=== PATIENT | female | born 1975 | race Two or more races ===

== ENCOUNTER 2016-09-24 14:40 | Emergency (ER) | payer OTHER ==
[2016-09-24 14:45] VITALS: BP 114/60; PULSE 88; TEMP 98.3; BMI 32.8
--- NOTE | 2016-09-24 16:11 | PDOC ---
History of Present Illness <Alpa Fernandez - Last Filed: 09/24/16 19:44> - General History Source: Patient Exam Limitations: No Limitations - History of Present Illness Travel History: No Initial Comments: 09/24/16 16:08 41 yr female with c/o left lower abd pain for one week comes and goes stabbing, shooting type pain. Pt denies nvd, LMP 09/01/16 sexually active no control. Pt denies urinary or bowel dysfunction. Pt has history of csection. Timing/Duration: reports: intermittent Quality: reports: sharpness, stabbing Abdominal Pain Onset Location: reports: LLQ Pain Radiation: reports: no radiation <Vesta Rajan - Last Filed: 09/27/16 12:49> - General Chief Complaint: Pain, Acute Stated Complaint: PAIN Time Seen by Provider: 09/24/16 15:57 Past History <Alpa Fernandez - Last Filed: 09/24/16 19:44> - Past Medical History Anemia: Yes Asthma: No Cancer: No Cardiac Disorders: No Diabetes: No HTN: No Seizures: No Thyroid Disease: No - Surgical History Cholecystectomy: Yes GI Surgery: Yes (sleeve) - Psycho/Social/Smoking Cessation Hx Anxiety: No Suicidal Ideation: No Smoking Status: Yes Smoking History: Never smoked Number of Cigarettes Smoked Daily: 0 Hx Alcohol Use: No Drug/Substance Use Hx: No Substance Use Type: None Hx Substance Use Treatment: No <Vesta Rajan - Last Filed: 09/27/16 12:49> - Past Medical History Allergies/Adverse Reactions: Allergies Allergy/AdvReac Type Severity Reaction Status Date / Time Penicillins Allergy Intermediate Rash Verified 09/24/16 14:45 Home Medications: Ambulatory Orders Naproxen [Naprosyn -] 500 mg PO BID #14 tablet 06/21/16 Naproxen [Naprosyn -] 500 mg PO BID PRN #14 tablet 09/24/16 Nitrofurantoin Monohyd/M-Cryst [Macrobid -] 100 mg PO BID #14 capsule 09/24/16 Abd/GI Specific PMHX - Complaint Specific PMHX Colitis: No Diverticulitis: No Gall Bladder Disease: No GERD: No Hepatitis: No Irritable Bowel Synd (IBS): No Pancreatitis: No GI Ulcer Disease: No <Vesta Rajan - Last Filed: 09/27/16 12:49> Review of Systems - Review of Systems Able to Perform ROS?: Yes Is the patient limited Tajik proficient: No Constitutional: No: Symptoms Reported HEENTM: No: Symptoms Reported Respiratory: No: Symptoms reported Cardiac (ROS): No: Symptoms Reported ABD/GI: Yes: See HPI : No: Symptoms Reported Musculoskeletal: No: Symptoms Reported Integumentary: No: Symptoms Reported Neurological: No: Symptoms reported <Vesta Rajan - Last Filed: 09/27/16 12:49> *Physical Exam - Vital Signs Last Vital Signs Temp Pulse Resp BP Pulse Ox 98.3 F 88 18 114/60 99 09/24/16 14:43 09/24/16 14:43 09/24/16 14:43 09/24/16 14:43 09/24/16 14:43 <Alpa Fernandez - Last Filed: 09/24/16 19:44> - Vital Signs Last Vital Signs Temp Pulse Resp BP Pulse Ox 98.3 F 88 18 114/60 99 09/24/16 14:43 09/24/16 14:43 09/24/16 14:43 09/24/16 14:43 09/24/16 14:43 - Physical Exam General Appearance: Yes: Nourished, Appropriately Dressed HEENT: positive: EOMI, JI, Normal ENT Inspection, TMs Normal, Pharynx Normal Neck: positive: Supple Respiratory/Chest: positive: Lungs Clear, Normal Breath Sounds Cardiovascular: positive: Regular Rhythm, Regular Rate Female Pelvic Exam: positive: normal external exam, normal adnexa, discharge ( white/yellow). negative: CMT Gastrointestinal/Abdominal: positive: Normal Bowel Sounds, Tender (llq mild , no rebound or guarding ), Soft Lymphatic: negative: Adenopathy Musculoskeletal: positive: Normal Inspection Extremity: positive: Normal Inspection, Normal Range of Motion Integumentary: positive: Normal Color, Dry, Warm Neurologic: positive: Fully Oriented, Alert, Normal Mood/Affect, Normal Response , Motor Strength 5/5 <Vesta Rajan - Last Filed: 09/27/16 12:49> ED Treatment Course - ADDITIONAL ORDERS Additional order review: Laboratory Results 09/24/16 16:00 Urine Color Straw Urine Appearance Slcloudy Urine pH 6.0 Urine Protein Negative Urine Glucose (UA) Negative Urine Ketones Negative Urine Blood Negative Urine Nitrite Negative Urine Bilirubin Negative Urine Urobilinogen Negative Ur Leukocyte Esterase 3+ H Urine RBC 3 Urine WBC 43 Ur Epithelial Cells Few Urine Bacteria Rare Urine Mucus Rare Urine HCG, Qual Negative <RebeccaAlpa - Last Filed: 09/24/16 19:44> Medical Decision Making - Medical Decision Making 09/24/16 16:14 cc: LLQ pain no fever or chills neg nvd no urinary symptoms will check urine, genital culture pt refused any pain meds will r/o ovarian cyst pt is stable 09/24/16 17:07 09/24/16 18:38 pt stable in US. no pain. 09/24/16 18:50 09/24/16 18:50 09/24/16 18:58 signed out to Alpa Fernandez who will follow the case. US pending. <Vesta Rajan - Last Filed: 09/27/16 12:49> *DC/Admit/Observation/Transfer - Discharge Dispostion Admit: No <Alpa Fernandez - Last Filed: 09/24/16 19:44> <Vesta Rajan - Last Filed: 09/27/16 12:49> Diagnosis at time of Disposition: Uterine fibroid - Discharge Dispostion Disposition: HOME Condition at time of disposition: Good - Prescriptions Prescriptions: Nitrofurantoin Monohyd/M-Cryst [Macrobid -] 100 mg PO BID #14 capsule Naproxen [Naprosyn -] 500 mg PO BID PRN #14 tablet PRN Reason: Pain - Referrals Referrals: Haseeb Peterson MD [Primary Care Provider] - Deonna Acosta MD [Staff Physician] - - Patient Instructions Printed Discharge Instructions: DI for Uterine Fibroids Additional Instructions: follow with your [facility] [employer] for follow up take naprosyn as directed for pain apply a warm heating pad to lower abdomen return to ER if any worsening symptoms - Post Discharge Activity Work/School Note: Back to Work
[2016-09-24 17:08] LABS: URINE APPEARANCE SLCLOUDY; URINE BILIRUBIN NEGATIVE (NEGATIVE); URINE BLOOD NEGATIVE (NEGATIVE); URINE COLOR STRAW; URINE GLUCOSE (UA) NEGATIVE (NEGATIVE); URINE KETONE NEGATIVE (NEGATIVE); URINE NITRITE NEGATIVE (NEGATIVE); URINE PROTEIN NEGATIVE (NEGATIVE); URINE UROBILINOGEN NEGATIVE E.U./dl (0.2-1.0)
[2016-09-24 17:21] LABS: URINE LEUK ESTERASE 3+ (NEGATIVE)
[2016-09-24 17:24] LABS: URINE BACTERIA RARE /hpf (NONE SEEN); URINE MUCUS RARE; URINE RBC 3 /hpf (0-3); URINE WBC 43 /hpf (3-5)
== END 2016-09-24 19:48 | disposition home or self-care (01) ==
LOC: JER 14:40
DX: D25.9 Leiomyoma of uterus, unspecified (principal)
CPT/HCPCS: 36415; 76830-TC; 81003; 81015; 84703; 87491; 87591; 99282-25

== ENCOUNTER 2017-06-01 13:00 | Emergency (ER) | payer OTHER ==
[2017-06-01 13:05] VITALS: BP 125/74; PULSE 116; TEMP 97.5; BMI 33.7
--- NOTE | 2017-06-01 14:21 | PDOC ---
History of Present Illness - General Chief Complaint: Pain Stated Complaint: RT KNEE, WRIST PAIN Time Seen by Provider: 06/01/17 13:50 History Source: Patient Exam Limitations: No Limitations - History of Present Illness Initial Comments: 06/01/17 14:16 42 year old female with history of cholecystectomy, x 1 and abdominal sleeve, present with complaints of right knee pain and left wrist pain x 1 week. States pain in left wrist with movement of wrist and right knee is aggravated by extended standing. Reports no injuries or fall. Also states no heavy lifting. Seen prior for the wrist and diagnosed with arthritis, taking acetaminophen with no relief. Occurred: reports: other (one week) Severity: reports: mild Pain Location: reports: lower extremity, upper extremity Method of Injury: Yes: unknown Modifying Factors: improves with: pain medication Loss of Consciousness: no loss of consciousness Associated Symptoms (Fall): denies symptoms Past History - Travel Traveled outside of the country in the last 30 days: No Close contact w/someone who was outside of country & ill: No - Past Medical History Allergies/Adverse Reactions: Allergies Allergy/AdvReac Type Severity Reaction Status Date / Time Penicillins Allergy Intermediate Rash Verified 06/01/17 13:04 Home Medications: Ambulatory Orders Naproxen [Naprosyn -] 500 mg PO BID #14 tablet 06/01/17 Anemia: Yes Asthma: No Cancer: No Cardiac Disorders: No COPD: No Diabetes: No HTN: No Seizures: No Thyroid Disease: No - Surgical History Cholecystectomy: Yes GI Surgery: Yes (sleeve) - Reproductive History Therapeutic (s) & number: No - Suicide/Smoking/Psychosocial Hx Smoking Status: Yes Smoking History: Never smoked Number of Cigarettes Smoked Daily: 0 Hx Alcohol Use: No Drug/Substance Use Hx: No Substance Use Type: None Hx Substance Use Treatment: No Trauma Specific PMHX - Complaint Specific PMHX Back Injury: No Neck Injury: No Review of Systems - Review of Systems Able to Perform ROS?: No Is the patient limited Bengali proficient: No Constitutional: No: Chills, Diaphoresis, Fever, Night Sweats, Weakness HEENTM: No: Ear Discharge, Nose Pain, Throat Pain, Throat Swelling Respiratory: No: Orthopnea, Wheezing Cardiac (ROS): No: Chest Pain ABD/GI: No: Abdominal Distended, Blood Streaked Bowels, Poor Appetite Musculoskeletal: Yes: Joint Pain Neurological: No: Headache, Numbness, Paresthesia *Physical Exam - Vital Signs Last Vital Signs Temp Pulse Resp BP Pulse Ox 97.5 F L 116 H 20 125/74 99 06/01/17 13:02 06/01/17 13:02 06/01/17 13:02 06/01/17 13:02 06/01/17 13:02 - Physical Exam General Appearance: Yes: Nourished, Appropriately Dressed. No: Apparent Distress HEENT: positive: EOMI, JI. 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 Medical Decision Making - Medical Decision Making 06/01/17 14:21 42 year old female with history of cholecystectomy, abdominal sleeve and c- section x 1 present with pain in right wrist and left knee xray of right knee analgesia uric acid *DC/Admit/Observation/Transfer Diagnosis at time of Disposition: Knee pain, acute Qualifiers: Laterality: right Qualified Code(s): M25.561 - Pain in right knee - Discharge Dispostion Disposition: HOME Condition at time of disposition: Good Admit: No - Prescriptions Prescriptions: Naproxen [Naprosyn -] 500 mg PO BID #14 tablet - Referrals Referrals: Haseeb Peterson MD [Primary Care Provider] - Chauncey Berger MD [Staff Physician] - Call tomorrow - Patient Instructions Printed Discharge Instructions: DI for Acute Pain -- Adult Additional Instructions: Activity as tolerated elevate leg at rest call orthopedic for follow up appointment - Post Discharge Activity Forms/Work/School Notes: Back to Work
[2017-06-01] MEDS ORDERED: KETOROLAC TROMETHAMINE 30 MG/1 ML VIAL IM ONE (14:23)
[2017-06-01] MEDS ORDERED: KETOROLAC TROMETHAMINE 30 MG/1 ML VIAL ONE (14:25)
== END 2017-06-01 16:14 | disposition home or self-care (01) ==
LOC: JERFT 13:00
PROC: 3E0233Z Introduction of Anti-inflammatory into Muscle, Percutaneous Approach (ICD-10-PCS; principal; 2017-06-01)
DX: M25.561 Pain in right knee (principal)
CPT/HCPCS: 36415; 73562-TC-RT-FY; 84550; 99281-25

== ENCOUNTER 2018-10-29 12:14 | Emergency (ER) | payer OTHER ==
[2018-10-29 12:17] VITALS: BP 117/65; PULSE 107; TEMP 99; BMI 33.6
[2018-10-29] MEDS ORDERED: KETOROLAC TROMETHAMINE 30 MG/1 ML VIAL IVPUSH STA (12:44)
[2018-10-29 13:34] LABS: BASO % 1.2 % (0-2.0); EOS % 4.9 % (0-4.5); HEMATOCRIT 29.5 % (32.4-45.2); HEMOGLOBIN 9.4 GM/dL (10.7-15.3); MCH 21.2 pg (25.7-33.7); MCHC 31.7 g/dl (32.0-36.0); MEAN CELL VOLUME 66.7 fl (80-96); MEAN PLT VOLUME 8.4 fl (7.5-11.1); MONO % 6.6 % (3.8-10.2); NEUT % 59.3 % (42.8-82.8); PLATELET COUNT 343 K/MM3 (134-434); RBC 4.43 M/mm3 (3.60-5.2); RDW 16.9 % (11.6-15.6); WHITE BLOOD COUNT 6.9 K/mm3 (4.0-10.0)
--- NOTE | 2018-10-29 13:38 | PDOC ---
History of Present Illness <Josselyn Bermeo [place] - Last Filed: 10/29/18 14:21> - General History Source: Patient Exam Limitations: No Limitations - History of Present Illness Travel History: No Initial Comments: 10/29/18 13:03 43-year-old female presents to ED with complaints of suprapubic cramping since last night. Patient states has history of uterine fibroids but states pain is normally not this severe. Patient states had intercourse last night and afterwards began to have pelvic pain along with vaginal bleeding. Patient states normal Pap smear approximately 9 months ago due to similar symptoms of postcoital bleeding and discomfort. Patient denies nausea, fever, chills, headache, vaginal discharge or vaginal bleeding presently Timing/Duration: reports: constant Quality: reports: mild, cramping Abdominal Pain Onset Location: reports: suprapubic Pain Radiation: reports: no radiation Activities at Onset: reports: sexual intercourse Aggravating Factors: improves with: None Alleviating Factors: improves with: None <Jessy Maciel - Last Filed: 10/29/18 15:15> - General Chief Complaint: Pain Stated Complaint: ABD PAIN Time Seen by Provider: 10/29/18 12:39 Past History <Josselyn Bermeo - Last Filed: 10/29/18 14:21> - Travel Traveled outside of the country in the last 30 days: No Close contact w/someone who was outside of country & ill: No - Past Medical History Anemia: Yes Asthma: No Cancer: No Cardiac Disorders: No COPD: No Diabetes: No HTN: No Seizures: No Thyroid Disease: No - Surgical History Cholecystectomy: Yes GI Surgery: Yes (sleeve) - Reproductive History Therapeutic (s) & number: No - Suicide/Smoking/Psychosocial Hx Smoking Status: Yes Smoking History: Never smoked Number of Cigarettes Smoked Daily: 0 Hx Alcohol Use: No Drug/Substance Use Hx: No Substance Use Type: None Hx Substance Use Treatment: No Patient Lives Alone: Yes Lives with/in: lives alone <Jessy Maciel - Last Filed: 10/29/18 15:15> - Past Medical History Allergies/Adverse Reactions: Allergies Allergy/AdvReac Type Severity Reaction Status Date / Time Penicillins Allergy Intermediate Rash Verified 10/29/18 12:17 Home Medications: Ambulatory Orders Naproxen [Naprosyn -] 500 mg PO BID #14 tablet 06/01/17 Abd/GI Specific PMHX - Complaint Specific PMHX Colitis: No Diverticulitis: No Gall Bladder Disease: No GERD: No Hepatitis: No Irritable Bowel Synd (IBS): No Pancreatitis: No GI Ulcer Disease: No <Jessy Maciel - Last Filed: 10/29/18 15:15> Review of Systems - Review of Systems Able to Perform ROS?: Yes Constitutional: No: Symptoms Reported HEENTM: No: Symptoms Reported Respiratory: No: Symptoms reported Cardiac (ROS): No: Symptoms Reported ABD/GI: Yes: Abdominal cramping : Yes: Discharge (vaginal bleeding last night) Integumentary: No: Symptoms Reported Neurological: No: Symptoms reported Hematologic/Lymphatic: No: Symptoms Reported <Jessy Maciel - Last Filed: 10/29/18 15:15> *Physical Exam - Vital Signs Last Vital Signs Temp Pulse Resp BP Pulse Ox 99 F 107 H 18 117/65 99 10/29/18 12:15 10/29/18 12:15 10/29/18 12:15 10/29/18 12:15 10/29/18 12:15 <Josselyn Bermeo - Last Filed: 10/29/18 14:21> - Vital Signs Last Vital Signs Temp Pulse Resp BP Pulse Ox 99 F 107 H 18 117/65 99 10/29/18 12:15 10/29/18 12:15 10/29/18 12:15 10/29/18 12:15 10/29/18 12:15 - Physical Exam General Appearance: Yes: Nourished, Appropriately Dressed. No: Apparent Distress HEENT: negative: Pale Conjunctivae Neck: positive: Normal Thyroid Respiratory/Chest: positive: Lungs Clear, Normal Breath Sounds. negative: Respiratory Distress, Accessory Muscle Use Cardiovascular: positive: Regular Rhythm, Tachycardia. negative: Murmur Female Pelvic Exam: negative: normal adnexa, CMT, discharge, adnexal tenderness , vaginal bleeding Gastrointestinal/Abdominal: positive: Normal Bowel Sounds, Soft, Tenderness ( mid suprapubic) Integumentary: positive: Normal Color, Warm, Moist Neurologic: positive: Motor Strength 5/5 (ambulatory) <Jessy Maciel - Last Filed: 10/29/18 15:15> ED Treatment Course - LABORATORY CBC & Chemistry Diagram: 10/29/18 13:00 10/29/18 13:00 - ADDITIONAL ORDERS Additional order review: Laboratory Results 10/29/18 10/29/18 10/29/18 13:00 13:00 13:00 Sodium 139 Potassium 3.5 Chloride 105 Carbon Dioxide 26 Anion Gap 8 BUN 11.4 Creatinine 1.0 Est GFR (CKD-EPI)AfAm 79.35 Est GFR (CKD-EPI)NonAf 68.46 Random Glucose 126 H Calcium 8.5 Total Bilirubin 0.3 AST 19 ALT 24 Alkaline Phosphatase 148 H Total Protein 8.0 Albumin 3.5 Urine Color Yellow Urine Appearance Clear Urine pH 6.0 Ur Specific [place] 1.006 L Urine Protein Negative Urine Glucose (UA) Negative Urine Ketones Negative Urine Blood Negative Urine Nitrite Negative Urine Bilirubin Negative Urine Urobilinogen 0.2 Ur Leukocyte Esterase 1+ H Urine HCG, Qual Negative 10/29/18 13:00 RBC 4.43 MCV 66.7 L MCHC 31.7 L RDW 16.9 H MPV 8.4 Neutrophils % 59.3 Lymphocytes % 28.0 D Monocytes % 6.6 Eosinophils % 4.9 H Basophils % 1.2 - Medications Given in the ED: ED Medications Discontinued Medications Generic Name Dose Route Start Last Admin Trade Name Freq PRN Reason Stop Dose Admin Ketorolac Tromethamine 30 mg 10/29/18 12:44 10/29/18 13:51 Toradol Injection - IVPUSH 10/29/18 12:45 30 mg ONCE STA Administration <Josselyn Bermeo - Last Filed: 10/29/18 14:21> - LABORATORY CBC & Chemistry Diagram: 10/29/18 13:00 10/29/18 13:00 - RADIOLOGY Radiology Studies Ordered: Category Date Time Status PELVIC / BLADDER US [US] Stat Ultrasound 10/29/18 12:47 Ordered TRANSVAGINAL ULTRASOUND US [US] Stat Ultrasound 10/29/18 12:47 Ordered <Jessy Maciel - Last Filed: 10/29/18 15:15> Medical Decision Making - Medical Decision Making The patient was seen and evaluated in conjunction with midlevel provider under my direct supervision, ancillary studies were reviewed. I agree with the plan as outlined TED Maciel. HPI, workup/dispo as outlined. VS reviewed, wnl. anticipate discharge, pcp followup, return precautions 10/29/18 14:21 <Josselyn Bermeo - Last Filed: 10/29/18 14:21> - Medical Decision Making 10/29/18 13:08 Chief complaint: Lower abdominal pain with postcoital bleeding which subsided an hour after intercourse. Patient does state intercourse was rough and has had similar pain before with intercourse patient with history of uterine fibroids. Last Pap smear presently 9 months ago which was negative Exam: slightly tachycardic temperature 99.0 orally. Mid suprapubic tenderness on exam Plan: labs, urine and ultrasound ordered along with Toradol for discomfort 10/29/18 15:12 Ultrasound shows 3 fibroids 1 in the fundus measuring 3.8 cm, second measuring 2.9 cm posterior intramural myoma, and third measuring 1.8 and the posterior intramural myoma Laboratory Tests 10/29/18 10/29/18 10/29/18 13:00 13:00 13:00 WBC 6.9 Hgb 9.4 L Hct 29.5 L Neutrophils % 59.3 Eosinophils % 4.9 H Sodium 139 Potassium 3.5 Chloride 105 Carbon Dioxide 26 Anion Gap 8 BUN 11.4 Creatinine 1.0 Est GFR (CKD-EPI)AfAm 79.35 Est GFR (CKD-EPI)NonAf 68.46 Random Glucose 126 H Calcium 8.5 Total Bilirubin 0.3 AST 19 ALT 24 Alkaline Phosphatase 148 H Ur Specific [place] Ur Leukocyte Esterase Urine HCG, Qual Negative 10/29/18 13:00 WBC Hgb Hct Neutrophils % Eosinophils % Sodium Potassium Chloride Carbon Dioxide Anion Gap BUN Creatinine Est GFR (CKD-EPI)AfAm Est GFR (CKD-EPI)NonAf Random Glucose Calcium Total Bilirubin AST ALT Alkaline Phosphatase Ur Specific [place] 1.006 L Ur Leukocyte Esterase 1+ H Urine HCG, Qual Pt states feeling better Patient will be given copy of labs including ultrasound secondary to fibroids and heavy menstrual cycle. Patient is followed by Dr. Dean 10/29/18 15:13 <Jessy Maciel - Last Filed: 10/29/18 15:15> *DC/Admit/Observation/Transfer <Josselyn Bermeo - Last Filed: 10/29/18 14:21> <Jessy Maciel - Last Filed: 10/29/18 15:15> Diagnosis at time of Disposition: Uterine fibroid - Discharge Dispostion Disposition: HOME Condition at time of disposition: Improved - Referrals Referrals: Haseeb Peterson MD [Primary Care Provider] - Faizan Dean MD [Staff Physician] - - Patient Instructions Printed Discharge Instructions: DI for Uterine Fibroids Additional Instructions: Follow-up with your CARE ASSISTANT and please bring copy of your labs and ultrasound with you. Please take Percocet as needed for severe pain but do not operate any heavy machinery while taking this medication. Otherwise you may take Motrin 600 mg as needed. - Post Discharge Activity
[2018-10-29 13:40] LABS: URINE APPEARANCE CLEAR; URINE BILIRUBIN NEGATIVE (NEGATIVE); URINE COLOR YELLOW; URINE GLUCOSE (UA) NEGATIVE (NEGATIVE); URINE KETONE NEGATIVE (NEGATIVE); URINE LEUK ESTERASE 1+ (NEGATIVE); URINE NITRITE NEGATIVE (NEGATIVE); URINE PROTEIN NEGATIVE (NEGATIVE); URINE UROBILINOGEN 0.2 mg/dL (0.2-1.0)
[2018-10-29] MEDS ORDERED: KETOROLAC TROMETHAMINE 30 MG/1 ML VIAL ONE (13:45)
[2018-10-29 14:08] LABS: ALBUMIN 3.5 g/dl (3.4-5.0); BILIRUBIN,TOTAL 0.3 mg/dL (0.2-1); BLOOD UREA NITROGEN 11.4 mg/dL (7-18); CALCIUM 8.5 mg/dL (8.5-10.1); POTASSIUM 3.5 mmol/L (3.5-5.1)
[2018-10-29 17:02] LABS: EPI CELLS 3.3 /HPF (0-5/HPF); HYALINE CASTS 0.35 /lpf (0-8); URINE BACTERIA 127.5 /hpf (NEGATIVE); URINE RBC 1.8 /hpf (0-4); URINE WBC 12.3 /hpf (0-5)
== END 2018-10-29 15:26 | disposition home or self-care (01) ==
LOC: JER 12:14
PROC: 3E0333Z Introduction of Anti-inflammatory into Peripheral Vein, Percutaneous Approach (ICD-10-PCS; principal; 2018-10-29)
DX: D25.9 Leiomyoma of uterus, unspecified (principal)
CPT/HCPCS: 36415; 76830-TC; 76856-TC; 80053; 81003; 84703; 85025; 87491; 87591; 99283-25

== ENCOUNTER 2019-10-08 09:34 | Emergency (ER) | payer OTHER ==
--- NOTE | 2019-10-08 09:41 | PDOC ---
Rapid Medical Evaluation Chief Complaint: Back Pain Time Seen by Provider: 10/08/19 09:37 Medical Evaluation: Allergies Allergy/AdvReac Type Severity Reaction Status Date / Time Penicillins Allergy Intermediate Rash Verified 10/08/19 09:36 10/08/19 09:39 CC: low back pain radiating down left leg x 1 week, went to urgent care and took muscle relaxers with no improvement . hx of the same. Has sexual intercourse the night before which she believes caused it. no incontinence or weakness Exam: no vertebral tenderness, + left sciatica tenderness, ambulatory Plan: ft Discharge Disposition - Diagnosis Low back strain - Referrals - Patient Instructions - Post Discharge Activity
--- NOTE | 2019-10-08 09:53 | PDOC ---
History of Present Illness - General Chief Complaint: Back Pain Stated Complaint: LWR BACK PAIN Time Seen by Provider: 10/08/19 09:37 History Source: Patient Exam Limitations: No Limitations - History of Present Illness Initial Comments: 10/08/19 09:48 Patient is a 44-year-old female with a history of anemia who presents to the ED with complaint of left buttock pain that radiates down to her foot for the last 3 days. She states she was seen in urgent care 3 days ago and was started on Naprosyn and a muscle relaxer. She states the pain is the worst at night. She does admit to pain relief with lying down. She has a lot of pain with walking. She denies any urinary or fecal incontinence or retention. She states she would have difficulty working today so she came to the ED for evaluation. She has an appointment with Dr. Castro, orthopedics, in 3 days for repeat evaluation. Past History - Medical History Allergies/Adverse Reactions: Allergies Allergy/AdvReac Type Severity Reaction Status Date / Time Penicillins Allergy Intermediate Rash Verified 10/08/19 09:36 Home Medications: Ambulatory Orders Naproxen [Naprosyn -] 500 mg PO BID #14 tablet 06/01/17 Oxycodone HCl/Acetaminophen [Percocet 5-325 mg Tablet] 1 - 2 tab PO Q6H PRN #12 tab MDD 4 10/29/18 Anemia: Yes Asthma: No Cancer: No Cardiac Disorders: No COPD: No Diabetes: No HTN: No Seizures: No Thyroid Disease: No - Surgical History Cholecystectomy: Yes GI Surgery: Yes (sleeve) - Reproductive History Therapeutic (s) & number: No - Immunization History Immunization Up to Date: Yes - Psycho-Social/Smoking History Smoking Status: Yes Smoking History: Current every day smoker Number of Cigarettes Smoked Daily: 0 Information on smoking cessation initiated: No - Substance Abuse Hx (Audit-C & DAST Scrn) How often the patient has a drink containing alcohol: Never Score: In Men: 4 or > Positive; In Women: 3 or > Positive: 0 Screen Result (Pos requires Nsg. Audit-10AR): Negative In the last yr the pt used illegal drug/Rx for NonMed reason: No Score: Yes response is considered Positive: 0 Screen Result (Positive result requires Nsg. DAST-10): Negative Review of Systems - Review of Systems Comments:: 10/08/19 09:49 - Review of Systems Able to Perform ROS?: Yes Constitutional: No: Fever, Chills, Loss of Appetite, Night Sweats, Weakness HEENTM: No: Eye Pain, Vision changes, Ear Pain, Throat Pain, Throat Swelling, Mouth Pain, Difficulty Swallowing Respiratory: No: Cough, Shortness of Breath, Wheezing, Sputum Production Cardiac (ROS): No: Chest Pain, Chest Tightness, Palpitations, Irregular Heart Beat, Edema ABD/GI: No: Nausea, Vomiting, Abdominal Pain, Diarrhea : No Dysuria, No Hematuria, No Frequency, No Urgency, No Vaginal Discharge/Pain Integumentary: No: Lesions, Rash, No Penile Discharge/Pain Musculoskeletal: No: Muscle Pain, Joint Pain, Muscle Weakness, Neck Pain; positive: Left-sided lumbar pain Neurological: No: Headache, Numbness, Tingling, Weakness, Speech Difficulties *Physical Exam - Vital Signs Last Vital Signs Temp Pulse Resp BP Pulse Ox 98.2 F 107 H 20 116/68 100 10/08/19 09:37 10/08/19 09:37 10/08/19 09:37 10/08/19 09:37 10/08/19 09:37 - Physical Exam 10/08/19 09:50 - Physical Exam General Appearance: Nourished, Appropriately Dressed, No Distress HEENT: EOMI, Normal Voice, Hearing Grossly Normal Neck: Supple, No Lymphadenopathy (R), No Lymphadenopathy (L), No Rigidity, No Decreased range of motion Respiratory/Chest: Lungs Clear, Normal Breath Sounds. No Respiratory Distress, No Accessory Muscle Use Cardiovascular: Regular Rhythm, Regular Rate, S1, S2 Gastrointestinal/Abdominal: Normal Bowel Sounds, Soft. Non-tender, No Guarding, No Rebound, No Rigidity Musculoskeletal: Normal Inspection. No Decreased Range of Motion; walking without ataxia, normal gait, tenderness to palpation to the left buttocks. Pain exacerbated with external rotation of the left hip. Strength 5/5 bilateral lower extremities. Sensation intact to the bilateral lower extremities to light touch. EHL intact bilaterally. Extremity: Normal Capillary Refill, Normal Inspection Integumentary: Normal Color, Dry. 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 Plan: -Patient to continue Naprosyn and muscle relaxer as prescribed by urgent care. -She has been shown multiple stretches to help with sciatica -She will follow-up with orthopedics as scheduled on , referral to spine surgery has been given as well -Patient understands and agrees with this treatment plan and she is stable for discharge. Discharge - Discharge Information Problems reviewed: Yes Clinical Impression/Diagnosis: Low back strain Qualifiers: Encounter type: initial encounter Qualified Code(s): S39.012A - Strain of muscle, fascia and tendon of lower back, initial encounter Low back pain Qualifiers: Chronicity: acute Back pain laterality: left Sciatica presence: with sciatica Sciatica laterality: sciatica of left side Qualified Code(s): M54.42 - Lumbago with sciatica, left side Condition: Stable Disposition: HOME - Follow up/Referral Referrals: Von العلي MD [Staff Physician] - - Patient Discharge Instructions Patient Printed Discharge Instructions: DI for Back Pain With Sciatica Additional Instructions: Get plenty of rest and avoid any strenuous activity. Be sure to take the Na prosyn as prescribed for the next several days but be sure to take with food. Take the muscle relaxer at night, primarily before bed. Be sure to follow-up with orthopedics, or spine surgery as referred, for further evaluation and treatment. - Post Discharge Activity Work/Back to School Note: Back to Work
[2019-10-08 09:58] VITALS: BP 116/68; PULSE 107; TEMP 98.2; BMI 30.7
== END 2019-10-08 10:00 | disposition home or self-care (01) ==
LOC: JER 09:34
DX: S39.012A Strain of muscle, fascia and tendon of lower back, initial encounter (principal); M54.42 Lumbago with sciatica, left side; Y99.9 Unspecified external cause status
CPT/HCPCS: 99282-25

== ENCOUNTER 2021-05-24 13:56 | Emergency (ER) | payer OTHER ==
[2021-05-24 14:03] VITALS: BP 102/68; PULSE 94; TEMP 97.3; BMI 34.3
[2021-05-24] MEDS ORDERED: KETOROLAC TROMETHAMINE 30 MG/1 ML VIAL IM ONE (14:37)
[2021-05-24] MEDS ORDERED: METHOCARBAMOL 500 MG TABLET PO ONE (14:38)
[2021-05-24] MEDS ORDERED: METHOCARBAMOL 500 MG TABLET ONE (14:45)
[2021-05-24] MEDS ORDERED: KETOROLAC TROMETHAMINE 30 MG/1 ML VIAL ONE (14:45)
== END 2021-05-24 15:00 | disposition home or self-care (01) ==
LOC: JER 13:56 → JERFT 13:56
PROC: 3E023GC Introduction of Other Therapeutic Substance into Muscle, Percutaneous Approach (ICD-10-PCS; principal; 2021-05-24)
DX: M54.32 Sciatica, left side (principal)
CPT/HCPCS: 99284-25

== ENCOUNTER 2022-01-02 19:06 | Emergency (ER) | payer OTHER ==
[2022-01-02 19:17] VITALS: BP 117/75; PULSE 93; RESP 18; TEMP 98; BMI 33.7
[2022-01-02] MEDS ORDERED: MECLIZINE HCL 25 MG TABLET (FP) PO ONE (21:14)
[2022-01-02 21:44] LABS: BASO % 0.8 % (0-2.0); EOS % 5.9 % (0-4.5); HEMATOCRIT 38.1 % (32.4-45.2); HEMOGLOBIN 13.2 GM/dL (10.7-15.3); LYMPH % 30.3 % (8-40); MCH 30.3 pg (25.7-33.7); MCHC 34.7 g/dl (32.0-36.0); MEAN CELL VOLUME 87.2 fl (80-96); MEAN PLT VOLUME 7.9 fl (7.5-11.1); MONO % 6.5 % (3.8-10.2); NEUT % 56.5 % (42.8-82.8); PLATELET COUNT 355 10^3/uL (134-434); RBC 4.36 M/mm3 (3.60-5.2); RDW 12.8 % (11.6-15.6)
[2022-01-02 22:00] LABS: CHLORIDE 103 mmol/L (98-107); SODIUM 136 mmol/L (136-145)
[2022-01-02 22:02] LABS: CALCIUM 8.9 mg/dL (8.5-10.1)
[2022-01-02 22:03] LABS: ALBUMIN 3.5 g/dl (3.4-5.0); ANION GAP 4 MMOL/L (8-16); BLOOD UREA NITROGEN 13.4 mg/dL (7-18); CO2 30 mmol/L (21-32); GLUCOSE,RANDOM 116 mg/dL (74-106); MAGNESIUM 2.1 mg/dL (1.8-2.4)
[2022-01-02 22:06] LABS: CREATININE 0.8 mg/dL (0.55-1.3); PHOSPHOROUS 3.9 mg/dL (2.5-4.9); SGOT/AST 15 U/L (15-37); SGPT/ALT 33 U/L (13-61)
[2022-01-02 22:09] LABS: ALK PHOS 156 U/L (45-117)
[2022-01-02 22:33] LABS: BILIRUBIN,TOTAL 0.2 mg/dL (0.2-1)
[2022-01-02] MEDS ORDERED: MECLIZINE HCL 25 MG TABLET (FP) ONE (22:36)
== END 2022-01-03 00:05 | disposition left against medical advice (07) ==
LOC: JER 19:06
DX: R42 Dizziness and giddiness (principal)
CPT/HCPCS: 36415; 70450-TC; 71046-TC-FY; 80053; 83735; 84100; 84484; 85025; 93005; 93010; 99285-25

== ENCOUNTER 2022-05-23 12:44 | Emergency (ER) | payer OTHER ==
[2022-05-23 12:50] VITALS: BP 113/72; PULSE 81; RESP 18; TEMP 98; BMI 35.0
== END 2022-05-23 13:51 | disposition home or self-care (01) ==
LOC: JER 12:44 → JERFT 12:44
DX: S60.042A Contusion of left ring finger without damage to nail, initial encounter (principal); Y99.9 Unspecified external cause status
CPT/HCPCS: 73140-TC-LT-FY; 99283-25

== ENCOUNTER 2022-11-24 13:53 | Emergency (ER) | payer OTHER ==
[2022-11-24 14:00] VITALS: BP 105/63; PULSE 89; RESP 18; TEMP 98.5; BMI 35.0
[2022-11-24] MEDS ORDERED: IBUPROFEN 600 MG TABLET (FP) PO ONE ×2 (14:58→15:15)
[2022-11-24] MEDS ORDERED: ACETAMINOPHEN 325 MG TABLET (FP) PO ONE (14:58)
[2022-11-24] MEDS ORDERED: ACETAMINOPHEN 325 MG TABLET (FP) ONE (15:15)
== END 2022-11-24 17:04 | disposition home or self-care (01) ==
LOC: JERFT 13:53
DX: M79.672 Pain in left foot (principal)
CPT/HCPCS: 73630-TC-LT; 99283-25

== ENCOUNTER 2023-01-16 12:53 | Emergency (ER) | payer OTHER ==
[2023-01-16 13:00] VITALS: BP 130/84; RESP 18; TEMP 98.3; BMI 35.2
[2023-01-16] MEDS ORDERED: FAMOTIDINE 20 MG TABLET PO ONE (13:51)
[2023-01-16] MEDS ORDERED: FAMOTIDINE 20 MG TABLET ONE (13:52)
[2023-01-16 13:53] LABS: BASO % 0.6 % (0-2.0); EOS % 5.6 % (0-4.5); HEMATOCRIT 35.6 % (32.4-45.2); HEMOGLOBIN 11.2 GM/dL (10.7-15.3); LYMPH % 26.4 % (8-40); MCH 23.9 pg (25.7-33.7); MCHC 31.5 g/dl (32.0-36.0); MEAN CELL VOLUME 75.8 fl (80-96); MONO % 7.3 % (3.8-10.2); NEUT % 60.1 % (42.8-82.8); PLATELET COUNT 367 10^3/uL (134-434); RDW 15.5 % (11.6-15.6); WHITE BLOOD COUNT 6.8 K/mm3 (4.0-10.0)
[2023-01-16 13:59] LABS: INR 0.99 (0.83-1.09); PROTHROMBIN TIME (PATIENT) 11.5 SEC (9.7-13.0)
[2023-01-16 14:02] LABS: ACTIVATED PTT 31.1 SECONDS (25.2-36.5)
[2023-01-16 14:16] LABS: CHLORIDE 104 mmol/L (98-107); POTASSIUM 3.6 mmol/L (3.5-5.1); SODIUM 137 mmol/L (136-145)
[2023-01-16 14:19] LABS: ALBUMIN 3.4 g/dl (3.4-5.0); ANION GAP 6 MMOL/L (8-16); BLOOD UREA NITROGEN 11.4 mg/dL (7-18); CALCIUM 8.6 mg/dL (8.5-10.1); CO2 28 mmol/L (21-32); GLUCOSE,RANDOM 103 mg/dL (74-106)
[2023-01-16 14:22] LABS: SGPT/ALT 31 U/L (13-61)
[2023-01-16 14:24] LABS: BILIRUBIN,TOTAL 0.2 mg/dL (0.2-1); TOT PROT 8.2 g/dl (6.4-8.2)
[2023-01-16 14:25] LABS: ALK PHOS 159 U/L (45-117)
[2023-01-16 14:27] LABS: N-TERMINAL BNP 15.1 pg/ml (5-125)
[2023-01-16 14:35] LABS: CREATININE 0.9 mg/dL (0.55-1.3); SGOT/AST 19 U/L (15-37)
[2023-01-16 15:48] VITALS: PULSE 88
== END 2023-01-16 15:50 | disposition home or self-care (01) ==
LOC: JERFT 12:53
DX: R06.02 Shortness of breath (principal); R60.0 Localized edema; R06.00 Dyspnea, unspecified
CPT/HCPCS: 36415; 71046-TC-FY; 80053; 82550; 83880; 84443; 84484; 85025; 85379; 85610; 85730; 93005; 93010; 99285-25

== ENCOUNTER 2023-07-17 08:28 | Emergency (ER) | payer OTHER ==
[2023-07-17 08:33] VITALS: BMI 35.3
[2023-07-17] MEDS ORDERED: METOCLOPRAMIDE HCL INJECTION 10 MG/2 ML VIAL ONE (09:19)
[2023-07-17] MEDS ORDERED: ACETAMINOPHEN INJECTION 100 ML IVPB ONE (09:20)
[2023-07-17] MEDS: METOCLOPRAMIDE HCL INJECTION 10 MG/2 ML VIAL IVPUSH ONE (09:36)
[2023-07-17] MEDS: ACETAMINOPHEN 1000 MG/100 ML BAG IVPB ONE (09:36)
[2023-07-17] MEDS: LACTATED RINGERS SOLUTION 1000 ML INFUS.BAG IV ONE (09:36)
[2023-07-17 09:50] LABS: BASO % 1.4 % (0-2.0); EOS % 1.9 % (0-4.5); HEMOGLOBIN 10.7 GM/dL (10.7-15.3); LYMPH % 18.4 % (8-40); MCH 23.4 pg (25.7-33.7); MCHC 31.6 g/dl (32.0-36.0); MEAN CELL VOLUME 74.1 fl (80-96); MEAN PLT VOLUME 8.1 fl (7.5-11.1); MONO % 11.5 % (3.8-10.2); NEUT % 66.8 % (42.8-82.8); PLATELET COUNT 340 10^3/uL (134-434); RDW 17.7 % (11.6-15.6); WHITE BLOOD COUNT 6.5 K/mm3 (4.0-10.0)
[2023-07-17 10:08] LABS: POTASSIUM 4.1 mmol/L (3.5-5.1)
[2023-07-17 10:11] LABS: ALBUMIN 3.3 g/dl (3.4-5.0); BLOOD UREA NITROGEN 7.8 mg/dL (7-18); MAGNESIUM 2.1 mg/dL (1.8-2.4)
[2023-07-17 10:14] LABS: CREATININE 0.9 mg/dL (0.55-1.3)
[2023-07-17 10:15] LABS: BILIRUBIN,TOTAL 0.4 mg/dL (0.2-1); TOT PROT 8.1 g/dl (6.4-8.2)
[2023-07-17] MEDS ORDERED: KETOROLAC TROMETHAMINE 15 MG/ML VIAL ONE (11:55)
[2023-07-17] MEDS: KETOROLAC TROMETHAMINE 30 MG/1 ML VIAL IVPUSH ONE (11:58)
[2023-07-17 13:25] VITALS: BP 111/57; PULSE 87; RESP 20; TEMP 98.1
== END 2023-07-17 14:13 | disposition home or self-care (01) ==
LOC: JER 08:28
PROC: 3E033NZ Introduction of Analgesics, Hypnotics, Sedatives into Peripheral Vein, Percutaneous Approach (ICD-10-PCS; principal; 2023-07-17)
PROC: 3E0333Z Introduction of Anti-inflammatory into Peripheral Vein, Percutaneous Approach (ICD-10-PCS; 2023-07-17)
PROC: 3E033GC Introduction of Other Therapeutic Substance into Peripheral Vein, Percutaneous Approach (ICD-10-PCS; 2023-07-17)
DX: R42 Dizziness and giddiness (principal); R51.9 Headache, unspecified
CPT/HCPCS: 36415; 80053; 83735; 84703; 85025; 93005; 93010; 99284-25; J0131

== ENCOUNTER 2024-07-07 10:56 | Emergency (ER) | payer OTHER ==
[2024-07-07 11:05] VITALS: BP 126/60; PULSE 99; RESP 20; TEMP 98.4; BMI 35.6
[2024-07-07] MEDS: ACETAMINOPHEN 500 MG TABLET (FP) PO ONE (11:41)
[2024-07-07] MEDS ORDERED: ACETAMINOPHEN 500 MG TABLET (FP) ONE (11:43)
== END 2024-07-07 14:02 | disposition home or self-care (01) ==
LOC: JERFT 10:56
DX: R20.2 Paresthesia of skin (principal); M79.651 Pain in right thigh; M79.652 Pain in left thigh
CPT/HCPCS: 72100-TC-FY; 99283-25

== ENCOUNTER 2024-11-08 14:28 | Emergency (ER) | payer OTHER ==
[2024-11-08 14:38] VITALS: TEMP 97.7; BMI 35.3
[2024-11-08] MEDS: SODIUM CHLORIDE 0.9% 500 ML INFUS.BAG IV ONE (16:32)
[2024-11-08 16:42] LABS: ABSOLUTE IMMATURE GRANULOCYTES 0.03 x10^3/uL (0.0-0.031); BASOPHILS # 0.06 x10^3/uL (0.01-0.08); EOSINOPHIL % 6.9 % (0.7-5.8); EOSINOPHILS # 0.46 x10^3/uL (0.04-0.36); MCHC 27.7 g/dl (32.2-35.5); MEAN CELL VOLUME 66.7 fl (79.4-94.8); MEAN PLT VOLUME 10.2 fl (9.4-12.3); MONOCYTE # 0.47 x10^3/uL (0.24-0.86); MONOCYTE % 7.0 % (4.7-12.5); RDW 17.8 % (12.2-17.1)
[2024-11-08 16:43] LABS: URINE APPEARANCE CLEAR; URINE BILIRUBIN NEGATIVE (NEGATIVE); URINE COLOR YELLOW; URINE GLUCOSE (UA) NEGATIVE (NEGATIVE); URINE KETONE NEGATIVE (NEGATIVE); URINE LEUK ESTERASE NEGATIVE (NEGATIVE); URINE NITRITE NEGATIVE (NEGATIVE); URINE PROTEIN NEGATIVE (NEGATIVE); URINE UROBILINOGEN 0.2 mg/dL (0.2-1.0)
[2024-11-08 16:50] LABS: INR 1.0 (0.83-1.09); PROTHROMBIN TIME (PATIENT) 11.0 SEC (9.7-13.0)
[2024-11-08 17:43] LABS: CO2 27 mmol/L (21-32)
[2024-11-08 17:44] LABS: GLUCOSE,RANDOM 91 mg/dL (74-106)
[2024-11-08 17:47] LABS: CREATININE 1.0 mg/dL (0.55-1.3)
[2024-11-08 17:48] LABS: TOT PROT 9.1 g/dl (6.4-8.2)
[2024-11-08 17:49] LABS: ALK PHOS 176 U/L (45-117)
[2024-11-08 17:51] VITALS: BP 109/74; PULSE 86; RESP 16
[2024-11-08 17:56] LABS: SGOT/AST 179 U/L (15-37); SGPT/ALT 48 U/L (13-61)
[2024-11-08 20:26] LABS: HCV DIAGNOSTIC IN-HOUSE W/RFLX NON-REACTIVE (NONREACTIVE)
[2024-11-08 20:28] LABS: HIV INTERPRETATION NEGATIVE (NEGATIVE)
== END 2024-11-08 18:01 | disposition home or self-care (01) ==
LOC: JER 14:28
DX: D50.9 Iron deficiency anemia, unspecified (principal); R53.83 Other fatigue; R53.1 Weakness; R42 Dizziness and giddiness
CPT/HCPCS: 36415; 71046-TC-FY; 80053; 81003; 83735; 84484; 85025; 85610; 86803; 87086; 87389; 87637-QW; 93005; 93010; 99285-25